=== PATIENT | male | born 1975 | race Caucasian/White ===

== ENCOUNTER 2024-01-21 10:22 | Inpatient (IN) ==
--- NOTE | 2024-01-21 11:06 | Emergency Department Note ---
History of Present Illness General Chief complaint: Throat Pain Stated complaint: THROAT SWELLING, DIFFICULTY SWALLOWING Time Seen by Provider: 01/21/24 10:42 History of Present Illness Maximum Pain Intensity: 4 This is a 48-year-old male that presents to the emergency department via private vehicle accompanied by 2 corrections officers from [facility] with complaints of "right-sided neck pain and swelling". The patient notes that January 08 noticed a lump/bump to the right side of the neck. He notes that he then became incarcerated here locally at the [facility] and notes progressive symptoms. Per review of the accompanying emergency flowsheet [id number] accompanying the patient he was started on oral Augmentin on 01/18. Patient has been compliant with this medication. Patient notes over the past 2.5 days he has not had any to eat secondary to severe pain when he swallows in the right side of the neck. The patient is able to breathe. He has associated nausea. He denies any fevers, chills or vomiting. No history of similar. No recent facial or dental injury. No known drug allergies. 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 Dyslipidemia Bipolar disorder Surgical History H/O vasectomy Family History Mother Non-Hodgkin lymphoma Father Brain cancer Social History Smoking Status: Former smoker Second Hand Exposure: No; Do You Dip or Chew Tobacco: No; Tobacco Cessation Education Requested by Patient: No Hx Alcohol Use: No Hx Substance Use: No Beliefs That Will Affect Care: None Current Living Situation: Other Other Information That Helps Us Care for You: No Feels Safe at Home: Yes Safety Concerns: Feels Safe At This Time Review of Systems A total of 10 systems reviewed and were otherwise negative Physical Exam Vital Signs Vital Signs - 24 hr 01/21/24 10:34 Temperature 36.3 C L Temperature Source Temporal Artery Scan Pulse Rate 67 Respiratory Rate 16 Respiratory Effort / Characteristics Non-Labored Respiratory Depth Normal Blood Pressure 114/77 Blood Pressure Mean 89 Pulse Oximetry 95 Oxygen Delivery Method Room Air Sepsis Recent Fever Within 48 Hours No Sepsis New/Unexplained Change in Mental Status No Sepsis Action Taken by Nursing No Action Required VITAL SIGNS - Vital signs and nursing notes were reviewed. Stable and afebrile. GENERAL -48-year-old male appearing his stated age who is in no acute distress. Communicates well with provider and answers questions appropriately. SKIN - Without rashes. No meningeal or petechial rash. There is edema and erythema noted to the right side of the neck and the right submandibular region. HEAD - NC/AT. EYES - PERRL with EOMI bilaterally. Sclera anicteric. EARS - No deformities of external structures noted on gross examination bilaterally. External auditory canals without discharge or otorrhea. Tympanic membranes pearly craft without retraction or bulging. No fluid or purulent material visualized behind the TM. Handle of malleus, umbo, cone of light, pars tensa/flaccid all easily visualized. NOSE - Midline and without cyanosis. No epistaxis or purulent drainage noted. Septum midline without deviation or septal hematoma noted. MOUTH/OROPHARYNX - Without perioral cyanosis. Buccal mucosa pink and moist and without leukoplakia. Tongue midline with equal elevation of palate bilaterally. No tonsillar hypertrophy, erythema, or exudates noted. Fair dentition noted. Much of the anterior dentition is present however most of the molars appear to be eroded to the gumline with dental caries noted. NECK - Neck with FROM. Supple to palpation. Right anterior cervical lymphadenopathy noted with palpable indurated and nonfluctuant right anterior submandibular region that is tender to palpation. No crepitus. No nuchal rigidity. LUNGS - Chest wall symmetric without accessory muscle use, intercostals retractions, or central cyanosis. Normal vesicular breath sounds CTA B/L. No wheezes, rales, or rhonchi appreciated. CARDIAC - RRR with S1/S2. No murmur, rubs, or gallops appreciated. EXTREMITIES - No clubbing or peripheral cyanosis. +5/5 strength noted in UE/LE bilaterally. NEUROLOGIC - Cranial nerves II through XII grossly intact PSYCH -alert, oriented and pleasant on exam Course Administered Medications Acetaminophen (Ofirmev) 1,000 mg in 100 mls @ 400 mls/hr IV Q8H [facility] Stop: 01/24/24 17:14 Last Infusion: 01/21/24 17:54 Dose: Infused Documented By: Admin: 01/21/24 17:33 Dose: 400 mls/hr Documented By: LOU Piperacillin Sod/Tazobactam Sod (Zosyn) 4.5 gm in 100 mls @ 25 mls/hr IV Q8H [facility] Stop: 01/31/24 18:59 Last Admin: 01/21/24 18:52 Dose: 25 mls/hr Documented By: LOU Lactated Ringer's (Lr) 1,000 mls @ 80 mls/hr IV .[id number] [facility] Stop: 01/22/24 18:00 Last Admin: 01/21/24 17:30 Dose: 80 mls/hr Documented By: LOU Discontinued Medications Vancomycin HCl 1,500 mg/ (Sodium Chloride) 530 mls @ 200 mls/hr IV NOW ONE Stop: 01/21/24 15:58 Last Infusion: 01/21/24 17:54 Dose: Infused Documented By: Admin: 01/21/24 15:38 Dose: 200 mls/hr Documented By: JANIYA Piperacillin Sod/Tazobactam Sod (Zosyn) 4.5 gm in 100 mls @ 200 mls/hr IV NOW ONE Stop: 01/21/24 13:50 Last Infusion: 01/21/24 17:25 Dose: Infused Documented By: Admin: 01/21/24 13:48 Dose: 200 mls/hr Documented By: CANDY Sodium Chloride (Nss) 1,000 mls @ 125 mls/hr IV .Q8H [facility] Stop: 02/20/24 13:29 Last Infusion: 01/21/24 17:41 Dose: Infused Documented By: Admin: 01/21/24 13:48 Dose: 125 mls/hr Documented By: CANDY Ioversol (Optiray 320 100ml) 94 ml IV ONCE ONE Stop: 01/21/24 12:16 Last Admin: 01/21/24 12:17 Dose: 94 ml Documented By: ARIANA Medical Decision Making Laboratory Data 01/21/24 10:54 01/21/24 10:54 Lab Results 01/21/24 Range/Units 10:54 WBC 8.80 (4.8-10.8) K/ul RBC 5.56 (4.70-6.10) M/uL Hgb 15.3 (14.0-18.0) g/dl Hct 45.2 (42.0-52.0) % MCV 81.3 (80.0-100.0) fL MCH 27.5 (25.0-34.0) pg MCHC 33.8 (32.0-36.0) g/dL RDW Std Deviation 38.5 (36.4-46.3) fL RDW Coeff of Loly 13.2 (11.5-14.5) % Plt Count 288 (130-400) K/uL MPV 9.6 (9.4-12.4) fL Immature Gran % (Auto) 0.3 % Neut % (Auto) 56.2 % Lymph % (Auto) 32.3 % Mckenzie % (Auto) 9.0 % Eos % (Auto) 1.7 % Baso % (Auto) 0.5 % Neut # (Auto) 4.95 (1.40-6.50) K/uL Lymph # (Auto) 2.84 (1.20-3.40) K/uL Mckenzie # (Auto) 0.79 H (0.11-0.59) K/uL Eos # (Auto) 0.15 (0.00-0.50) K/uL Baso # (Auto) 0.04 (0.00-0.20) K/uL Immature Gran # (Auto) 0.03 (0.01-0.20) K/uL Sodium 136 (136-145) mmol/L Potassium 4.2 (3.5-5.1) mmol/L Chloride 105 (98-107) mmol/L Carbon Dioxide 24 (21-32) mmol/L Anion Gap 7 (3-11) BUN 13 (6-23) mg/dl Creatinine 0.72 (0.6-1.4) mg/dl Est Cr Clr Drug Dosing 135.1 ml/min Est GFR ( Amer) 128.7 ml/min Est GFR (Non-Af Amer) 111.1 ml/min BUN/Creatinine Ratio 18.1 (10-20) Glucose 100 H (70-99(Fasting)) mg/dl Calcium 9.0 (8.6-10.3) mg/dl Total Bilirubin 0.6 (0.2-1.0) mg/dl AST 21 (13-39) U/L ALT 21 (7-52) U/L Alkaline Phosphatase 62 (34-104) U/L Total Protein 7.8 (6.0-8.3) gm/dl Albumin 4.2 (3.4-5.0) gm/dl Globulin 3.6 (2.5-4.0) gm/dl Albumin/Globulin Ratio 1.2 (0.9-2) Imaging Data Radiologist's Impression: Soft Tissue Neck CT 01/21/24 11:01 CT OF THE NECK WITH IV CONTRAST CLINICAL HISTORY: Right sided neck pain, edema COMPARISON STUDY: No previous studies for comparison. TECHNIQUE: Following IV administration of 94 mL of Optiray, helical axial images of the neck were obtained. Sagittal and coronal reconstructions were viewed. Automated exposure control was utilized for the study. A dose lowering technique was utilized adhering to the principles of ALARA. FINDINGS: Visualized portions of the intracranial contents are unremarkable. The parotid glands are normal. The left submandibular gland is normal. There are multiple large sialoliths within the right submandibular gland the proximal right submandibular gland duct. The largest is within the gland, extending into the proximal duct, measuring 2.3 x 1.3 cm. There is asymmetric enlargement right submandibular gland with moderate adjacent inflammation which extends into the submandibular and parapharyngeal spaces. There is moderate associated mass effect upon the hypopharynx. No fluid collections are present. There is no soft tissue gas. Multiple asymmetrically mildly enlarged right-sided cervical lymph nodes are present. Index right level 1 node on image 197 of 393 measures 1.4 x 1 cm. The epiglottis is normal. Visualized portions of lung apices demonstrate mild emphysema. Major vasculature of the neck is patent. IMPRESSION: 1. Multiple large sialoliths within the right submandibular gland and proximal submandibular duct, measuring up to 2.3 x 1.3 cm. Associated sialoadenitis of the right submandibular gland with moderate adjacent inflammation with mass effect upon the hypopharynx and floor of the mouth. 2. Multiple mildly enlarged right-sided cervical lymph nodes which are likely reactive. A follow-up neck CT 2 months to ensure resolution and exclude the much less likely possibility of an underlying neoplastic process is recommended. ACT 112: Positive. There are findings on this exam that require communication between the performing entity and the patient following Patient Test Result Information Act ([place] Act 112) guidelines. Electronically signed by: Lee Hill M.D. 01/21/2024 1:00 PM MDM Narrative Patient was seen and evaluated as above in room D09. Review was performed of triage nursing notes and vital signs. A thorough history and physical examination was performed. Patient presents to us today for assessment of progressive right-sided neck pain. On exam there is edema to the right anterior neck region. There is no drooling, stridor, trismus, wheezing or tripoding. Normal phonation. No signs of emergent airway compromise at this time. Options of care were discussed with the patient. IV access was established. Labs were drawn. No leukocytosis or concerning anemia. No emergent metabolic disturbance. CT soft tissue neck was obtained. Results as above. Multiple large style of this within the right submandibular gland and proximal submandibular duct, measuring up to 2.3 x 1.3 cm. Associated sialoadenitis of the right submandibular gland with moderate adjacent inflammation with mass effect upon the hypopharynx and floor of the mouth. Multiple right-sided enlarged cervical lymph nodes noted. Follow-up neck CT in 2 months recommended. I discussed this with the on-call oral maxillofacial surgeon, Dr. Eisenberg. I spoke to him and we will proceed with inpatient management, IV antibiotics. He will see the patient during the admission here. IV Zosyn as well as IV vancomycin ordered for broad coverage. Case discussed with the hospitalist service. Please refer to further documentation regarding his stay. GCS: 15 In the evaluation and treatment of this patient the following differential diagnoses were entertained: Abscess, cellulitis, stone, Saurabh's angina, among others. Impression & Plan Acute sialoadenitis, Sialoliths, Neck pain on right side Discharge Plan Visit Data Chief Complaint: Throat Pain Stated Complaint: THROAT SWELLING, DIFFICULTY SWALLOWING ED Provider: Edmund Leal ED Midlevel Provider: Boom Moon Discharge Problem: Acute sialoadenitis, Sialoliths, Neck pain on right side Patient Disposition: Admitted As Inpatient Condition: Good Discharge Instructions Interventions: ED Discharge Assessment Last Done: 01/21/24 16:12
[2024-01-21 11:18] LABS: Basophils # (auto) 0.04 K/uL (0.00-0.20); Basophils % (auto) 0.5 %; Eosinophils # (auto) 0.15 K/uL (0.00-0.50); Eosinophils % (auto) 1.7 %; Hematocrit (blood only) 45.2 % (42.0-52.0); Hemoglobin 15.3 g/dl (14.0-18.0); Immature Granulocytes # (auto) 0.03 K/uL (0.01-0.20); Immature Granulocytes % (auto) 0.3 %; Lymphocytes # (auto) 2.84 K/uL (1.20-3.40); Lymphocytes % (auto) 32.3 %; Mean Corpuscular Hemoglobin 27.5 pg (25.0-34.0); Mean Corpuscular Hgb Conc 33.8 g/dL (32.0-36.0); Mean Corpuscular Volume 81.3 fL (80.0-100.0); Mean Platelet Volume 9.6 fL (9.4-12.4); Monocytes # (auto) 0.79 K/uL (0.11-0.59); Neutrophils # (auto) 4.95 K/uL (1.40-6.50); Neutrophils % (auto) 56.2 %; Platelet Count 288 K/uL (130-400); RDW Coefficient of Variation 13.2 % (11.5-14.5); RDW Standard Deviation 38.5 fL (36.4-46.3); Red Blood Count 5.56 M/uL (4.70-6.10)
[2024-01-21 11:39] LABS: Albumin Globulin Ratio 1.2 (0.9-2); Albumin Level 4.2 gm/dl (3.4-5.0); BUN Creatinine Ratio 18.1 (10-20); Bilirubin,Total 0.6 mg/dl (0.2-1.0); Creatinine Clr Calc Pharmacy 135.1 ml/min; Est GFR (African American) 128.7 ml/min; Est GFR (Non-African American) 111.1 ml/min; Globulin 3.6 gm/dl (2.5-4.0); Potassium 4.2 mmol/L (3.5-5.1); Total Protein 7.8 gm/dl (6.0-8.3)
[2024-01-21] MEDS: OPTIRAY 320 100ml IV ONE (12:17)
--- NOTE | 2024-01-21 13:01 | CT Scan Report ---
CT OF THE NECK WITH IV CONTRAST CLINICAL HISTORY: Right sided neck pain, edema COMPARISON STUDY: No previous studies for comparison. TECHNIQUE: Following IV administration of 94 mL of Optiray, helical axial images of the neck were ob tained. Sagittal and coronal reconstructions were viewed. Automated exposure control was utilized f or the study. A dose lowering technique was utilized adhering to the principles of ALARA. FINDINGS: Visualized portions of the intracranial contents are unremarkable. The parotid glands are normal. The left submandibular gland is normal. There are multiple large sialoliths within the right submandibular gland the proximal right submandibular gland duct. The largest is within the gland, ext ending into the proximal duct, measuring 2.3 x 1.3 cm. There is asymmetric enlargement right submandi bular gland with moderate adjacent inflammation which extends into the submandibular and parapharynge al spaces. There is moderate associated mass effect upon the hypopharynx. No fluid collections are pr esent. There is no soft tissue gas. Multiple asymmetrically mildly enlarged right-sided cervical lymp h nodes are present. Index right level 1 node on image 197 of 393 measures 1.4 x 1 cm. The epiglottis is normal. Visualized portions of lung apices demonstrate mild emphysema. Major vasculature of the n stephon is patent. IMPRESSION: 1. Multiple large sialoliths within the right submandibular gland and proximal submandibular duct, me asuring up to 2.3 x 1.3 cm. Associated sialoadenitis of the right submandibular gland with moderate a djacent inflammation with mass effect upon the hypopharynx and floor of the mouth. 2. Multiple mildly enlarged right-sided cervical lymph nodes which are likely reactive. A follow-up n stephon CT 2 months to ensure resolution and exclude the much less likely possibility of an underlying ne oplastic process is recommended. ACT 112: Positive. There are findings on this exam that require communication between the performing entity and the patient following Patient Test Result Information Act ([place] Act 112) guidelines. Electronically signed by: Lee Hill M.D. 01/21/2024 1:00 PM
[2024-01-21] MEDS ORDERED: AMPICILLIN/SULBACTAM SOD 3,000 MG/100 ML BAG IV STA (13:20)
[2024-01-21] MEDS ORDERED: VANCOMYCIN CONSULT ACTIVE PRN (13:20)
--- NOTE | 2024-01-21 13:31 | History & Physical Report ---
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 Notes it has gotten progressively worse and is to the point where it hurts to swallow. He was star anup on oral Augmentin on 01/18 without much to any improvement. Sialoliths & Acute Sialoadenitis Lab work unremarkable, no leukocytosis. Airway patent. Soft tissue neck CT w/ the following findings: * Multiple large sialoliths w/in the R submandibular gland and proximal submandibular duct, measuring up to 2.3 x 1.3 cm. * Associated sialoadenitis of the R submandibular gland w/ moderate adjacent inflammation w/ mass effect upon the hypopharynx and floor of the mouth. * Multiple mildly enlarged R-sided cervical lymph nodes - likely reactive. A follow-up neck CT 2 months to ensure resolution and exclude the much less likely possibility of an underlying neoplastic process is recommended. OMFS consulted - Dr. Eisenberg will be in to see patient this evening. Appreciate his recommendations/input. IV Vancomycin + Zosyn in ED. 1L NSS in ED. Will continue IV Zosyn. Continue IVF w/ LR's x 2 bags. Full liquid diet. Pain regimen. Biofire pending. MRSA swab pending. Blood cx pending. Speech therapy eval pending. OF NOTE: Patient's mother w/ history of non-Hodgkin's lymphoma - was diagnosed in her 30s. Will need follow-up neck CT as outpatient to ensure resolution of mildly enlarged R-sided cervical chain lymph nodes. DVT Prophylaxis: TEDs/SCDs for now pending OMFS evaluation. Code Status: FULL CODE PCP: [facility] Disposition: Admit to Med/Surg + Telemetry Patient seen in collaboration with Dr. Collins. Please see addendum. I spent a total of 45 minutes coordinating, documenting, and providing care for this patient excluding time spent in the performance of separately billed services. This included personally reviewing all current laboratories and imaging studies, medical reconciliation, outpatient chart review and discussion with specialists. This chart was completed in part utilizing Speech Voice Recognition Software. Grammatical errors, random word insertions, pronoun errors, and incomplete sentences are an occasional consequence of this system due to software limitations, ambient noise, and hardware issues. Any formal questions or concerns about the content, text, or information contained within the body of this dictation should be directly addressed to the provider for clarification. 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 History obtained from patient, documentation provided by [facility] and associated chart review. Patient with R-sided facial and neck swelling since December 29. Notes it has gotten progressively worse and is to the point where it hurts to swallow. He has been able to tolerate fluids fine, but reports significant difficulty with swallowing solid foods. Denies any SOB or trouble breathing. Has some associated nausea, but no episodes of vomiting. He was started on oral Augmentin on 01/18 at [facility] and has been compliant with this medication. He does not take any other prescribed medications. No fevers, chills or body aches. He has not been eating well over the past 2 days 2/2 pain with swallowing. Reports his mother was diagnosed with non-Hodgkin's lymphoma in her 30s. Father from brain cancer, unsure of what type. Allergies Allergy/AdvReac Type Severity Reaction Status Date / Time No Known Allergies Allergy Unverified 01/21/24 14:04 Home Medications Medication Instructions Recorded Confirmed Type No Known Home Medications 01/21/24 01/21/24 History Past Med/Surg History Problem List (Updated 01/21/24 @ 14:25 by Keren García PA-C) Sialoliths Acute sialoadenitis Medical History 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 Dyslipidemia Bipolar disorder Surgical History H/O vasectomy Family History Mother Non-Hodgkin lymphoma Father Brain cancer Social History Smoking Status: Never smoker Feels Safe at Home: Yes Review of Systems Review of Systems: At least ten systems reviewed and negative, except as noted in the HPI. Physical Exam Physical Exam: Please refer to Dr. Collins's addendum for physical examination findings. Results & Data Results & Data Vital Signs (Past 12 Hours) Vital Signs Temp Pulse Resp BP Pulse Ox O2 Del Method 01/21/24 10:34 36.3 C L 67 16 114/77 95 Room Air Laboratory Results Short CBC 01/21/24 Range/Units 10:54 WBC 8.80 (4.8-10.8) K/ul Hgb 15.3 (14.0-18.0) g/dl Hct 45.2 (42.0-52.0) % Plt Count 288 (130-400) K/uL BMP 01/21/24 10:54 Sodium 136 Potassium 4.2 Chloride 105 Carbon Dioxide 24 BUN 13 Creatinine 0.72 Glucose 100 H Calcium 9.0 Liver Function 01/21/24 Range/Units 10:54 Total Bilirubin 0.6 (0.2-1.0) mg/dl AST 21 (13-39) U/L ALT 21 (7-52) U/L Alkaline Phosphatase 62 (34-104) U/L Albumin 4.2 (3.4-5.0) gm/dl Diagnostic Findings Soft Tissue Neck CT 01/21/24 11:01 CT OF THE NECK WITH IV CONTRAST CLINICAL HISTORY: Right sided neck pain, edema COMPARISON STUDY: No previous studies for comparison. TECHNIQUE: Following IV administration of 94 mL of Optiray, helical axial images of the neck were obtained. Sagittal and coronal reconstructions were viewed. Automated exposure control was utilized for the study. A dose lowering technique was utilized adhering to the principles of ALARA. FINDINGS: Visualized portions of the intracranial contents are unremarkable. The parotid glands are normal. The left submandibular gland is normal. There are multiple large sialoliths within the right submandibular gland the proximal right submandibular gland duct. The largest is within the gland, extending into the proximal duct, measuring 2.3 x 1.3 cm. There is asymmetric enlargement right submandibular gland with moderate adjacent inflammation which extends into the submandibular and parapharyngeal spaces. There is moderate associated mass effect upon the hypopharynx. No fluid collections are present. There is no soft tissue gas. Multiple asymmetrically mildly enlarged right-sided cervical lymph nodes are present. Index right level 1 node on image 197 of 393 measures 1.4 x 1 cm. The epiglottis is normal. Visualized portions of lung apices demonstrate mild emphysema. Major vasculature of the neck is patent. IMPRESSION: 1. Multiple large sialoliths within the right submandibular gland and proximal submandibular duct, measuring up to 2.3 x 1.3 cm. Associated sialoadenitis of the right submandibular gland with moderate adjacent inflammation with mass effect upon the hypopharynx and floor of the mouth. 2. Multiple mildly enlarged right-sided cervical lymph nodes which are likely reactive. A follow-up neck CT 2 months to ensure resolution and exclude the much less likely possibility of an underlying neoplastic process is recommended. ACT 112: Positive. There are findings on this exam that require communication between the performing entity and the patient following Patient Test Result Information Act ([place] Act 112) guidelines. Electronically signed by: Lee Hill M.D. 01/21/2024 1:00 PM Medications Administered Discontinued Medications Ioversol (Optiray 320 100ml) 94 ml IV ONCE ONE Stop: 01/21/24 12:16 Last Admin: 01/21/24 12:17 Dose: 94 ml Documented By: JAR Code Status & VTE Plan Code Status FULL CODE Supervising Physician Co-Signing Physician Notes Patient is a 48-year-old male with mood disorder and no other significant past medical history presents with history of right neck swelling associated with pain, difficulty swallowing especially solids which has been gradually worsening since about 1 week duration. Patient was started on Augmentin 2 days ago which did not resolve her symptoms. He denies any fever, chills, chest pain, dyspnea, abdominal pain, diarrhea. He denies having similar swelling in the past. He reports nausea as well. Please review HPI for complete details of presentation. Blood work within normal limits. CT neck showed findings suggestive of siaload enitis of the right submandibular gland with moderate inflammation with mass effect upon the hypopharynx and floor of the mouth. Also showed enlarged right- sided cervical lymph nodes. Physical Exam: Vitals signs as noted above General Appearance:Moderately built and nourished, no apparent distress Head: normocephalic, Atraumatic Eyes: normal inspection, EOMI Neck: supple, Trachea midline, + right submandibular region swelling, tenderness Respiratory/Chest: Normal breath sounds, CTA, No accessory muscle use Cardiovascular: S1, S2, No murmur Abdomen/GI:Soft, Non tender, Bowel sounds present Extremities/Musculoskeletal:normal inspection, no edema, +Finger Amputation Neurologic/Psych:AAOX3, grossly no focal neurological deficits Skin: normal color, warm Acute sialadenitis Sialolithiasis Right cervical lymphadenopathy likely reactive secondary to above Dysphagia secondary to above CT neck as above Blood cultures Check viral panel IV fluids, IV Zosyn Pain control with anti-inflammatories Oral maxillary surgery consulted Liquid diet for now Likely will need repeat CT neck as outpatient to ensure resolution Consider speech therapy eval if needed May need lithotripsy, biopsy of cervical lymph nodes if no resolution with conservative management I personally interviewed and examined at bedside. Patient's care is coordinated with Keren García PA-C. I have reviewed the advanced practitioner's documentation, and I agree with plan of care. Please refer to the documentation above for details of patient's presentation and for discussion of other issues. I spent a total of26 minutes coordinating, documenting, and providing care for this patient excluding time spent in the performance of separately billed services.
[2024-01-21] MEDS: SODIUM CHLORIDE 0.9% 1,000 ML IV SCH (13:48)
[2024-01-21] MEDS: PIPERACILLIN/TAZOBACTAM 4.5 GM/100 ML BAG IV ONE (13:48)
[2024-01-21] MEDS: VANCOMYCIN HCL 1,500 MG in SODIUM CHLORIDE 0.9% 500 ML IV ONE (15:38)
[2024-01-21 16:49] LABS: Adenovirus PCR Not Detected (NotDetected); Bordetella parapertussis PCR Not Detected (NotDetected); Bordetella pertussis PCR Not Detected (NotDetected); Chlamydia pneumoniae PCR Not Detected (NotDetected); Coronavirus 229E PCR Not Detected (NotDetected); Coronavirus CoV-2 (COVID19)PCR Not Detected (NotDetected); Coronavirus HKU1 PCR Not Detected (NotDetected); Coronavirus NL63 PCR Not Detected (NotDetected); Coronavirus OC43PCR Not Detected (NotDetected); Human Metapneumovirus PCR Not Detected (NotDetected); Influenza A PCR Not Detected (NotDetected); Influenza B PCR Not Detected (NotDetected); Mycoplasma pneumoniae PCR Not Detected (NotDetected); Parainfluenza Virus 1 PCR Not Detected (NotDetected); Parainfluenza Virus 2 PCR Not Detected (NotDetected); Parainfluenza Virus 3 PCR Not Detected (NotDetected); Parainfluenza Virus 4 PCR Not Detected (NotDetected); Respiratory Syncytial VirusPCR Not Detected (NotDetected); Rhinovirus/Enterovirus PCR Not Detected (NotDetected)
[2024-01-21] MEDS ORDERED: ONDANSETRON INJ 2 MG/ML 2 ML VIAL IV PRN (17:01)
[2024-01-21] MEDS: LACTATED RINGER'S 1,000 ML IV SCH (17:30)
[2024-01-21] MEDS: ACETAMINOPHEN 1,000 MG/100 ML VIAL IV SCH (17:33)
[2024-01-21] MEDS: PIPERACILLIN/TAZOBACTAM 4.5 GM/100 ML BAG IV SCH (18:52)
[2024-01-21] MEDS: KETOROLAC TROMETHAMINE 15 MG/ML VIAL IV PRN (23:00)
[2024-01-22 07:32] LABS: Hematocrit (blood only) 40.2 % (42.0-52.0); Hemoglobin 13.7 g/dl (14.0-18.0); Mean Corpuscular Hemoglobin 27.6 pg (25.0-34.0); Mean Corpuscular Hgb Conc 34.1 g/dL (32.0-36.0); Mean Corpuscular Volume 80.9 fL (80.0-100.0); Platelet Count 245 K/uL (130-400); RDW Coefficient of Variation 13.2 % (11.5-14.5); RDW Standard Deviation 38.3 fL (36.4-46.3); Red Blood Count 4.97 M/uL (4.70-6.10); White Blood Count 7.11 K/ul (4.8-10.8)
[2024-01-22 07:52] LABS: BUN Creatinine Ratio 16.5 (10-20); Calcium 8.7 mg/dl (8.6-10.3); Creatinine Clr Calc Pharmacy 145.1 ml/min; Est GFR (African American) 123.9 ml/min; Est GFR (Non-African American) 106.9 ml/min; Magnesium 1.8 mg/dl (1.7-2.4); Phosphorus 3.9 mg/dl (2.5-4.9); Potassium 3.8 mmol/L (3.5-5.1)
--- NOTE | 2024-01-22 17:26 | Hospitalist Progress Note ---
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 Notes it has gotten progressively worse and is to the point where it hurts to swallow. He was s tarted on oral Augmentin on 01/18 without much to any improvement. Spoke with OMFS who will evaluate and discuss possible surgical intervention. #Acute Sialoadenitis soft tissue neck CT w/ the following findings: * Multiple large sialoliths w/in the R submandibular gland and proximal submandibular duct, measuring up to 2.3 x 1.3 cm. * Associated sialoadenitis of the R submandibular gland w/ moderate adjacent inflammation w/ mass effect upon the hypopharynx and floor of the mouth. * Multiple mildly enlarged R-sided cervical lymph nodes - likely reactive. A follow-up neck CT 2 months to ensure resolution and exclude the much less likely possibility of an underlying neoplastic process is recommended. OMFS consulted - -Continue IV zosyn -Likely NPO Thursday for surgical intervention on Thursday Blood culture NGTD Follow up imaging as op for resolution of LAD--likely reactive 2/2 infection DVT Prophylaxis: TEDs/SCDs for now pending OMFS evaluation. Code Status: FULL CODE PCP: [facility] Disposition: Admit to Med/Surg + Telemetry Admission and Anticipated Discharge Date Admission Date: January 21, 2024 Subjective NAEO Reports mild improvement in facial pain Denies fevers or other acute concerns Physical Exam Constitutional: WD/WN, vitals as above Neck: swollen neck, tender right side Respiratory: normal respiratory effort, lungs clear to auscultation Cardiovascular: RRR, no murmur, no edema Gastrointestinal (Abdomen): normal bowel sounds, soft, nontender, no hepatosplenomegaly Results & Data Results & Data Vital Signs (Past 12 Hours) Vital Signs Temp Pulse Pulse Resp BP Pulse Ox O2 Del Method 01/22/24 15:30 59 L 01/22/24 15:00 36.4 C L 63 18 113/75 93 Room Air 01/22/24 11:46 36.6 C 58 L 18 112/74 95 Room Air 01/22/24 07:25 36.3 C L 66 18 104/68 95 Room Air 01/22/24 07:21 65 Laboratory Results Short CBC 01/22/24 Range/Units 06:56 WBC 7.11 (4.8-10.8) K/ul Hgb 13.7 L (14.0-18.0) g/dl Hct 40.2 L (42.0-52.0) % Plt Count 245 (130-400) K/uL BMP 01/22/24 06:56 Sodium 138 Potassium 3.8 Chloride 105 Carbon Dioxide 26 BUN 13 Creatinine 0.79 Glucose 98 Calcium 8.7 Medications Administered Home Medications Medication Instructions Recorded Confirmed Last Taken No Known Home Medications 01/21/24 01/21/24 Unknown Active Medications Generic Name Dose Route Start Last Admin Trade Name Deshaunq PRN Reason Stop Dose Admin Acetaminophen 1,000 mg in 100 mls @ 400 mls/hr 01/21/24 17:15 01/22/24 16:05 Ofirmev IV 01/24/24 17:14 Not Given Q8H ЕЛЕНА Piperacillin Sod/Tazobactam Sod 4.5 gm in 100 mls @ 25 mls/hr 01/21/24 19:00 01/22/24 13:43 Zosyn IV 01/31/24 18:59 Infused Q8H ЕЛЕНА Infusion Lactated Ringer's 1,000 mls @ 80 mls/hr 01/21/24 17:01 01/22/24 06:31 Lr IV 01/22/24 18:00 80 mls/hr .[id number] ЕЛЕНА Administration
[2024-01-22] MEDS: KETOROLAC TROMETHAMINE 15 MG/ML VIAL IV PRN (17:29)
[2024-01-23 08:05] LABS: Hemoglobin 14.3 g/dl (14.0-18.0); Mean Corpuscular Hemoglobin 28.4 pg (25.0-34.0); Mean Corpuscular Hgb Conc 34.9 g/dL (32.0-36.0); Mean Corpuscular Volume 81.3 fL (80.0-100.0); Mean Platelet Volume 9.5 fL (9.4-12.4); Platelet Count 258 K/uL (130-400); RDW Coefficient of Variation 13.2 % (11.5-14.5); RDW Standard Deviation 38.6 fL (36.4-46.3); Red Blood Count 5.04 M/uL (4.70-6.10); White Blood Count 8.07 K/ul (4.8-10.8)
[2024-01-23 08:22] LABS: Calcium 8.9 mg/dl (8.6-10.3); Creatinine Clr Calc Pharmacy 134.4 ml/min; Est GFR (African American) 119.7 ml/min; Est GFR (Non-African American) 103.3 ml/min; Magnesium 1.7 mg/dl (1.7-2.4); Phosphorus 3.9 mg/dl (2.5-4.9); Potassium 3.9 mmol/L (3.5-5.1)
[2024-01-23] MEDS: LACTATED RINGER'S 1,000 ML IV SCH (08:23)
[2024-01-23] MEDS: LACTATED RINGER'S 500 ML IV ONE (08:23)
[2024-01-23] MEDS: HYDROmorphone INJ 0.5 MG/0.5 ML SYR IV PRN (08:32)
--- NOTE | 2024-01-23 09:20 | Hospitalist Progress Note ---
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 Notes it has gotten progressively worse and is to the point where it hurts to swallow. He was s tarted on oral Augmentin on 01/18 without much to any improvement. Spoke with OMFS who will evaluate and discuss possible surgical intervention. #Hypotensive, aymptomatic BP lower end of normal, poor po intake Add IVF #Acute Sialoadenitis soft tissue neck CT w/ the following findings: * Multiple large sialoliths w/in the R submandibular gland and proximal submandibular duct, measuring up to 2.3 x 1.3 cm. * Associated sialoadenitis of the R submandibular gland w/ moderate adjacent inflammation w/ mass effect upon the hypopharynx and floor of the mouth. * Multiple mildly enlarged R-sided cervical lymph nodes - likely reactive. A follow-up neck CT 2 months to ensure resolution and exclude the much less likely possibility of an underlying neoplastic process is recommended. OMFS consulted - -Continue IV zosyn -NPO for surgical intervention Blood culture NGTD Follow up imaging as op for resolution of LAD--likely reactive 2/2 infection Adjusted pain regimen for better coverage of symptoms cbc in am DVT Prophylaxis: TEDs/SCDs for now pending OMFS evaluation. Code Status: FULL CODE PCP: [facility] Disposition: Admit to Med/Surg + Telemetry Admission and Anticipated Discharge Date Admission Date: January 21, 2024 Subjective Reports pain returns aggressively after medication wears off, feels like right neck is sharp/stabbing Denies fevers or other new concerns Physical Exam Constitutional: WD/WN, vitals as above Neck: right sided neck firmness and tenderness Cardiovascular: RRR, no murmur, no edema Gastrointestinal (Abdomen): normal bowel sounds, soft, nontender, no hepatosplenomegaly Results & Data Results & Data Vital Signs (Past 12 Hours) Vital Signs Temp Pulse Pulse Resp BP Pulse Ox O2 Del Method 01/23/24 07:28 36.5 C 53 L 18 93/64 L 91 Room Air 01/23/24 07:27 64 01/23/24 04:21 36.6 C 69 20 91/54 L 97 Room Air 01/23/24 00:20 36.7 C 64 20 101/66 97 Room Air 01/22/24 23:25 64 Laboratory Results Short CBC 01/23/24 Range/Units 06:54 WBC 8.07 (4.8-10.8) K/ul Hgb 14.3 (14.0-18.0) g/dl Hct 41.0 L (42.0-52.0) % Plt Count 258 (130-400) K/uL BMP 01/23/24 06:54 Sodium 139 Potassium 3.9 Chloride 105 Carbon Dioxide 29 BUN 12 Creatinine 0.86 Glucose 98 Calcium 8.9 Medications Administered Home Medications Medication Instructions Recorded Confirmed Last Taken No Known Home Medications 01/21/24 01/21/24 Unknown Active Medications Generic Name Dose Route Start Last Admin Trade Name Freq PRN Reason Stop Dose Admin Hydromorphone HCl 0.5 mg 01/23/24 08:16 01/23/24 08:32 Hydromorphone Inj 0.5 Mg/0.5 Ml Syr IV 02/06/24 08:15 0.5 mg Q4H PRN Administration Severe Pain (Scale 7, 8, 9,10) Acetaminophen 1,000 mg in 100 mls @ 400 mls/hr 01/21/24 17:15 01/23/24 08:14 Ofirmev IV 01/24/24 17:14 Not Given Q8H ЕЛЕНА Piperacillin Sod/Tazobactam Sod 4.5 gm in 100 mls @ 25 mls/hr 01/21/24 19:00 01/23/24 07:05 Zosyn IV 01/31/24 18:59 Infused Q8H ЕЛЕНА Infusion Lactated Ringer's 1,000 mls @ 125 mls/hr 01/23/24 08:00 01/23/24 08:23 Lr IV 02/22/24 07:59 125 mls/hr .Q8H ЕЛЕНА Administration Ketorolac Tromethamine 30 mg 01/22/24 17:20 01/23/24 07:05 Ketorolac Tromethamine 15 Mg/Ml Vial IV 01/25/24 17:19 30 mg Q6H PRN Administration Mod-Sev Pain (Scale 4-10)
--- NOTE | 2024-01-23 10:29 | Oral/Maxillofacial Consult ---
Date of Consultation January 21, 2024 Assessment & Plan (1) Neck pain on right side: (2) Sialoliths: (3) Acute sialoadenitis: (4) Submandibular duct obstruction: (5) Mouth swelling: (6) Retained dental root: History of Present Illness Attending Physician: Kell Montalvo MD History of Present Illness Patient is a 48-year-old male with mood disorder and no other significant past medical history presents with history of right neck swelling associated with pain, difficulty swallowing especially solids which has been gradually worsening since about 1 week duration. Patient was started on Augmentin 2 days ago which did not resolve her symptoms. He denies any fever, chills, chest pain, dyspnea, abdominal pain, diarrhea. He denies having similar swelling in the past. He reports nausea as well. Please review HPI for complete details of presentation. Blood work within normal limits. I evaluated Lyle on January 20 in his hospital room. There is a very firm mass which corresponds with the CT finding of a large calcified stone or gland. He has diffuse swelling and tenderness in the right submandibular area. I questioned him regarding the mass and he feels it has been like that for years. The most impressive part of the exam is the swelling in the right posterior floor of the mouth and scant cloudy drainage from the subglandular gland duct. The lower right teeth are grossly infected and fracture and may also be a contributing factor to the current infection. As of January 20 there is nothing to drain and therefor an I&D is not yet indicated. The plan is for IV antibiotics and follow up. January 22, 2024 At todays exam I now feel more fluctuance in the right floor of the mouth as the infection is starting to localize. Upon palpation some pus like discharge can be expressed from the duct and around the posterior lower fractured roots. I feel that another 24 hours of IV antibiotics will allow for more localization so an I&D can be set for THURSDAY AM. My treatment plan will be to place a probe into the right submandibular duct and do a wide opening of the duct and if possible remove any of the stones that are in the posterior duct and preform a posterior ducto-plasty for drainage. I will also remove and curette the fractured lower posterior roots and establish drainage of the submandibular infection via the intraoral approach. I reviewed this with Lyle and he is in agreement. He understands that ultimately he will need the right submandibular gland removed once the acute infection is resolved. I will see Lyle on January 22 in the afternoon and finalize arrangement for the I&D with possible stone removal with extractions. Oral Maxillofacial Surgery Exam Present Complaint: I have pain/swelling/drainage from my infected wisdom teeth. Symptoms have been ongoing for a while. Oral Exam: Finding--P-cor associated with the impacted teeth, tender gingival tissue with deep pocket formation.Teeth are in an abnormal position and removal is clinical indicated. Imaging: CT neck showed findings suggestive of sialoadenitis of the right submandibular gland with moderate inflammation with mass effect upon the hypopharynx and floor of the mouth. Also showed enlarged right-sided cervical lymph nodes. CT OF THE NECK WITH IV CONTRAST CLINICAL HISTORY: Right sided neck pain, edema FINDINGS: Visualized portions of the intracranial contents are unremarkable. The parotid glands are normal. The left submandibular gland is normal. There are multiple large sialoliths within the right submandibular gland the proximal right submandibular gland duct. The largest is within the gland, extending into the proximal duct, measuring 2.3 x 1.3 cm. There is asymmetric enlargement right submandibular gland with moderate adjacent inflammation which extends into the submandibular and parapharyngeal spaces. There is moderate associated mass effect upon the hypopharynx. No fluid collections are present. There is no soft tissue gas. Multiple asymmetrically mildly enlarged right-sided cervical lymph nodes are present. Index right level 1 node on image 197 of 393 measures 1.4 x 1 cm. The epiglottis is normal. Visualized portions of lung apices demonstrate mild emphysema. Major vasculature of the neck is patent. IMPRESSION: 1. Multiple large sialoliths within the right submandibular gland and proximal submandibular duct, measuring up to 2.3 x 1.3 cm. Associated sialoadenitis of the right submandibular gland with moderate adjacent inflammation with mass effect upon the hypopharynx and floor of the mouth. 2. Multiple mildly enlarged right-sided cervical lymph nodes which are likely reactive. A follow-up neck CT 2 months to ensure resolution and exclude the much less likely possibility of an underlying neoplastic process is recommended. 3. Multiply fractured and abscessed teeth especially the lower right and left molars with associated radiolucencies. Soft tissue: The right floor of the mouth is swollen. The tongue, hard/soft palate, posterior pharyngeal area all with in normal limits, Noted the large stone w/in the right submandibular gland. Oral Care: Overall oral care is poor Head/Neck exam: Mass right submandibular area with diffuse swelling, minimal pain, Neck is supple, FROM, Able to extend and flex neck w/o difficulty, no masses, no abnormalities, no airway issues, Treatment Plan: Continue IV antibiotics for the next 48 hours then plan I&D Set up with general anesthesia in hospital due to complexity of the procedure I reviewed the treatment plan and consent with the patient. Understanding was expressed. Time was given for questions regarding the surgery, risks and post op care. Discussed alternative to treatment--procedure as planned, Do not do surgery Risks discussed: Bleeding,Pain,swelling,infection, dry socket, delayed healing, nerve injury to face,lips,tongue,chin area which could be permanent (rare). Need for future removal of the right submandibular gland, Damage to nerves of the face, tongue continued infection, scaring, TMJ, jaw stiffness, change in bite (rare), ear pain (referred). Need to leave a small root fragment in place to avoid injury to nerve or sinus. Relationship of wisdom teeth to nerve/sinus and risk of jaw fracture. 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 Dyslipidemia Bipolar disorder Surgical History H/O vasectomy Family History Mother Non-Hodgkin lymphoma Father Brain cancer Social History Smoking Status: Former smoker Second Hand Exposure: No; Do You Dip or Chew Tobacco: No; Tobacco Cessation Education Requested by Patient: No Hx Alcohol Use: No Hx Substance Use: No Beliefs That Will Affect Care: None Current Living Situation: Other Other Information That Helps Us Care for You: No Feels Safe at Home: Yes Safety Concerns: Feels Safe At This Time Results & Data Vital Signs (Past 12 Hours) Vital Signs Temp Pulse Pulse Resp BP Pulse Ox O2 Del Method 01/23/24 07:28 36.5 C 53 L 18 93/64 L 91 Room Air 01/23/24 07:27 64 01/23/24 04:21 36.6 C 69 20 91/54 L 97 Room Air 01/23/24 00:20 36.7 C 64 20 101/66 97 Room Air 01/22/24 23:25 64 PG Care Time/CCT Total # of Minutes Spent Total Time Spent with Patient: Total time spent is greater than 50% in coordination of care (as documented) at patient's floor/unit and/or counseling patient: Coding Level of Care Code 10334 IN/OBS CONSULT LVL 3,45M Diagnoses Neck pain on right side M54.2 Sialoliths K11.5 Acute sialoadenitis K11.21 Submandibular duct obstruction K11.8 Mouth swelling R22.0 Retained dental root K08.3
--- NOTE | 2024-01-23 16:35 | Oral/Maxillofacial Progress Nt ---
Date of Service January 23, 2024 Assessment & Plan Admission and Anticipated Discharge Date Admission Date: January 21, 2024 Erickson Alvarenga will be ready for the I&D , intraoral stone removal and extraction or infected teeth 29,, tomorrow AM in the OR. There is not much swelling in the submandibular gland as now all the swelling is located intro`rally in the posterior mandible where the large stone is located. Given how posterior it is located intraoral removal may no be possible. If that is the case I will at least do a posterior ductal plasty to drain the site, extraction of the abscessed teeth and roots lower right jaw. It is possible that the infection could be more dental related given the quality of the teeth. The stones are so large that I suspect the duct is non functioning. I will keep Glynn NPO tonight as surgery is set for Jan 23 in the OR in the AM I reviewed the Tx plan consent signed--Glynn understands that he may need the right gland removed if I can not remove the stone from the mouth or if his symptoms continue. If this infection is from the infected teeth the gland may not need removal unless symptoms continue. He also understand that in the face of the acute infection gland removal from the extraoral approach is not indicated and carries high risks of complications. Given that I need full access to the floor of the mouth I will request a nasal intubation. Results & Data Vital Signs (Past 12 Hours) Vital Signs Temp Pulse Pulse Resp BP Pulse Ox O2 Del Method 01/23/24 15:10 36.5 C 66 18 101/63 96 Room Air 01/23/24 13:34 71 01/23/24 11:24 36.6 C 81 16 99/66 L 96 Room Air 01/23/24 07:28 36.5 C 53 L 18 93/64 L 91 Room Air 01/23/24 07:27 64 PG Care Time/CCT Total # of Minutes Spent Total Time Spent with Patient: Total time spent is greater than 50% in coordination of care (as documented) at patient's floor/unit and/or counseling patient: Coding Level of Care Code None
[2024-01-23] MEDS: diphenhydrAMINE 50 MG/ML VIAL IV STA (19:25)
[2024-01-23] MEDS: SODIUM CHLORIDE 0.9% 1,000 ML IV SCH (21:31)
[2024-01-24] MEDS: CHLORHEXIDINE GLUCONATE 0.12% 480 ML MT PRN (01:36)
[2024-01-24 07:29] LABS: Hematocrit (blood only) 40.8 % (42.0-52.0); Hemoglobin 13.6 g/dl (14.0-18.0); Mean Corpuscular Hemoglobin 27.3 pg (25.0-34.0); Mean Corpuscular Hgb Conc 33.3 g/dL (32.0-36.0); Mean Corpuscular Volume 81.9 fL (80.0-100.0); Mean Platelet Volume 8.9 fL (9.4-12.4); Platelet Count 258 K/uL (130-400); RDW Coefficient of Variation 12.9 % (11.5-14.5); RDW Standard Deviation 38.5 fL (36.4-46.3); Red Blood Count 4.98 M/uL (4.70-6.10); White Blood Count 8.04 K/ul (4.8-10.8)
[2024-01-24 07:52] LABS: BUN Creatinine Ratio 13.3 (10-20); Calcium 8.8 mg/dl (8.6-10.3); Creatinine Clr Calc Pharmacy 154.4 ml/min; Est GFR (African American) 126.6 ml/min; Est GFR (Non-African American) 109.2 ml/min; Potassium 3.6 mmol/L (3.5-5.1)
--- NOTE | 2024-01-24 08:37 | History & Physical Bridge Note ---
Date of Service January 24, 2024 History & Physical Bridge Note I have examined the patient, reviewed the History & Physical and in the interval since the performance of the History & Physical I have noted the following changes of clinical significance: no changes noted. OK for the planned I&D with ? stone removal and extraction of abscessed lower right roots.
[2024-01-24] MEDS ORDERED: PROMETHAZINE HCL 6.25 MG in SODIUM CHLORIDE 0.9% 50 ML IV PRN (08:52)
[2024-01-24] MEDS ORDERED: ATROPINE SULFATE 0.1 MG/ML 10ML SYR IV PRN (08:52)
[2024-01-24] MEDS ORDERED: ePHEDrine sulfate 50 MG/ML AMP IV PRN (08:52)
[2024-01-24] MEDS ORDERED: ONDANSETRON INJ 2 MG/ML 2 ML VIAL IV PRN (08:52)
--- NOTE | 2024-01-24 08:52 | Anesthesiology Consultation ---
Date of Service January 24, 2024 Assessment & Plan Chart Review Chart Review: Acceptable Risk for Surgery and Patient NOT seen in Pre Admission Testing Consults Requested none ASA ASA2 Proposed Anesthesia Anesthesia Type: General (nasal intubation requested by surgeon) Risk / Benefits Reviewed With: PT / POA / Parent / Guardian, Accepts Plan and Informed Consent Obtained History Surgery Operation Date: 01/24/24 09:30 Proposed Procedures p M. Facial Incision and Drainage, removal of teeth - Tawanda Eisenberg, DMD Height/Weight Height: 5 ft 11 in Weight: 111.2 kg Allergies Allergy/AdvReac Type Severity Reaction Status Date / Time No Known Allergies Allergy Unverified 01/21/24 14:04 Medications Home Medications Medication Instructions Recorded Confirmed Last Taken No Known Home Medications 01/21/24 01/21/24 Unknown Active Medications Generic Name Dose Route Start Last Admin Trade Name Freq PRN Reason Stop Dose Admin Chlorhexidine Gluconate 15 ml 01/23/24 16:37 01/24/24 01:36 Chlorhexidine Gluconate 0.12% 480 Ml MT 02/22/24 16:36 15 ml Q6 PRN Administration 15 ml q 6 hrs and in AM preop Hydromorphone HCl 0.5 mg 01/23/24 08:16 01/24/24 01:01 Hydromorphone Inj 0.5 Mg/0.5 Ml Syr IV 02/06/24 08:15 0.5 mg Q4H PRN Administration Severe Pain (Scale 7, 8, 9,10) Acetaminophen 1,000 mg in 100 mls @ 400 mls/hr 01/21/24 17:15 01/24/24 08:26 Ofirmev IV 01/24/24 17:14 Not Given Q8H ЕЛЕНА Piperacillin Sod/Tazobactam Sod 4.5 gm in 100 mls @ 25 mls/hr 01/21/24 19:00 01/24/24 08:25 Zosyn IV 01/31/24 18:59 Infused Q8H ЕЛЕНА Infusion Sodium Chloride 1,000 mls @ 125 mls/hr 01/23/24 20:15 01/24/24 08:26 Nss IV 02/22/24 20:14 Infused .Q8H ЕЛЕНА Infusion Ketorolac Tromethamine 30 mg 01/22/24 17:20 01/24/24 04:02 Ketorolac Tromethamine 15 Mg/Ml Vial IV 01/25/24 17:19 30 mg Q6H PRN Administration Mod-Sev Pain (Scale 4-10) NPO Date Last Intake of Fluids: 01/23/24 Time Last Intake of Fluids: 00:00 Date Last Intake of Solids: 01/23/24 Time Last Intake of Solids: 00:00 Past Medical History Medical History 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 Dyslipidemia Bipolar disorder Exercise / Class Metabolic Activity II 4-5 Yardwork/Stairs/Walk up hill Past Family History Family History Mother Non-Hodgkin lymphoma Father Brain cancer Past Surgical History Surgical History H/O vasectomy Past Anesthesia History No Hx of Anesthesia Complications and No Family Hx of Anesthesia Complications History of PONV No Hx of PONV and No Hx of Motion Sickness Social History Smoking Status: Former smoker Do You Dip or Chew Tobacco: No Hx Alcohol Use: No Hx Substance Use: No Physical Exam Vital Signs Last Vital Signs Temp 36.4 C L 01/24/24 07:42 Pulse 69 01/24/24 07:42 Resp 18 01/24/24 07:42 BP 99/64 L 01/24/24 07:42 Pulse Ox 94 01/24/24 07:42 O2 Del Method Room Air 01/24/24 07:42 ENMT Mouth: + poor dentition Thyromental Distance: > or= 3.5 Finger Breadths Mallampati Class: II Neck normal visual inspection Respiratory normal respiratory effort Auscultation: lungs clear to auscultation bilaterally Cardiovascular Rate/Rhythm: regular rate and regular rhythm Psychiatric Orientation: alert Testing Laboratory Results 01/24/24 07:04 01/24/24 07:04 01/21/24 14:58 Aerobic Blood Culture - Preliminary Blood No growth in Aerobic bottle after 48 hours. Anaerobic Blood Culture - Preliminary No growth in Anaerobic bottle after 48 hours.
[2024-01-24] MEDS ORDERED: PROPOFOL IV EMULSION 10 MG/ML 20 ML VIAL IV ONE (08:58)
[2024-01-24] MEDS ORDERED: fentaNYL citrate PF 100 MCG/2 ML VIAL ONE ×2 (08:58→10:02)
[2024-01-24] MEDS ORDERED: MIDAZOLAM HCL 1 MG/ML 2ML VIAL ONE (08:58)
--- NOTE | 2024-01-24 09:41 | Hospitalist Progress Note ---
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 Notes it has gotten progressively worse and is to the point where it hurts to swallow. He was started on oral Augmentin on 01/18 without much to any improvement. Spoke with OMFS who will evaluate and discuss possible surgical intervention. #Hypotensive, aymptomatic BP lower end of normal, poor po intake Continue IVF #Acute Sialoadenitis soft tissue neck CT w/ the following findings: * Multiple large sialoliths w/in the R submandibular gland and proximal submandibular duct, measuring up to 2.3 x 1.3 cm. * Associated sialoadenitis of the R submandibular gland w/ moderate adjacent inflammation w/ mass effect upon the hypopharynx and floor of the mouth. * Multiple mildly enlarged R-sided cervical lymph nodes - likely reactive. A follow-up neck CT 2 months to ensure resolution and exclude the much less likely possibility of an underlying neoplastic process is recommended. OMFS consulted - -Continue IV zosyn -NPO for surgical intervention Blood culture NGTD Follow up imaging as op for resolution of LAD--likely reactive 2/2 infection Adjusted pain regimen for better coverage of symptoms Follow up post op, plan forI&D with OMFS today 01/23 DVT Prophylaxis: TEDs/SCDs for now pending OMFS evaluation. Code Status: FULL CODE PCP: [facility] Disposition: Admit to Med/Surg + Telemetry Admission and Anticipated Discharge Date Admission Date: January 21, 2024 Subjective NAEO; evaluated prior to surgery this am Reports feeling well this am and ready to have procedure Denies any new symptoms Physical Exam Constitutional: WD/WN, vitals as above Respiratory: normal respiratory effort, lungs clear to auscultation Cardiovascular: RRR, no murmur, no edema Gastrointestinal (Abdomen): normal bowel sounds, soft, nontender, no hepatosplenomegaly Results & Data Results & Data Vital Signs (Past 12 Hours) Vital Signs Temp Pulse Pulse Resp BP Pulse Ox O2 Del Method 09/01/24 07:42 36.4 C L 69 18 99/64 L 94 Room Air 01/24/24 07:05 69 01/24/24 03:13 36.7 C 78 18 97/67 L 94 Room Air 01/23/24 23:42 76 01/23/24 22:49 36.8 C 74 16 109/77 95 Room Air Laboratory Results Short CBC 01/24/24 Range/Units 07:04 WBC 8.04 (4.8-10.8) K/ul Hgb 13.6 L (14.0-18.0) g/dl Hct 40.8 L (42.0-52.0) % Plt Count 258 (130-400) K/uL BMP 01/24/24 07:04 Sodium 139 Potassium 3.6 Chloride 104 Carbon Dioxide 27 BUN 10 Creatinine 0.75 Glucose 103 H Calcium 8.8 Medications Administered Home Medications Medication Instructions Recorded Confirmed Last Taken No Known Home Medications 01/21/24 01/21/24 Unknown Active Medications Generic Name Dose Route Start Last Admin Trade Name Freq PRN Reason Stop Dose Admin Chlorhexidine Gluconate 15 ml 01/23/24 16:37 01/24/24 01:36 Chlorhexidine Gluconate 0.12% 480 Ml MT 02/22/24 16:36 15 ml Q6 PRN Administration 15 ml q 6 hrs and in AM preop Hydromorphone HCl 0.5 mg 01/23/24 08:16 01/24/24 01:01 Hydromorphone Inj 0.5 Mg/0.5 Ml Syr IV 02/06/24 08:15 0.5 mg Q4H PRN Administration Severe Pain (Scale 7, 8, 9,10) Acetaminophen 1,000 mg in 100 mls @ 400 mls/hr 01/21/24 17:15 01/24/24 08:26 Ofirmev IV 01/24/24 17:14 Not Given Q8H ЕЛЕНА Piperacillin Sod/Tazobactam Sod 4.5 gm in 100 mls @ 25 mls/hr 01/21/24 19:00 01/24/24 08:25 Zosyn IV 01/31/24 18:59 Infused Q8H ЕЛЕНА Infusion Sodium Chloride 1,000 mls @ 125 mls/hr 01/23/24 20:15 01/24/24 08:26 Nss IV 02/22/24 20:14 Infused .Q8H ЕЛЕНА Infusion Ketorolac Tromethamine 30 mg 01/22/24 17:20 01/24/24 04:02 Ketorolac Tromethamine 15 Mg/Ml Vial IV 01/25/24 17:19 30 mg Q6H PRN Administration Mod-Sev Pain (Scale 4-10)
[2024-01-24] MEDS ORDERED: DEXAMETHASONE SOD INJ 4 MG/ML VIAL ONE ×2 (10:38→10:48)
[2024-01-24] MEDS ORDERED: ONDANSETRON INJ 2 MG/ML 2 ML VIAL ONE (10:38)
[2024-01-24] MEDS ORDERED: PHENYLEPHRINE HCL 10 MG/ML VIAL ONE (10:38)
[2024-01-24] MEDS ORDERED: SUGAMMADEX SODIUM 200 MG/2 ML VIAL IV ONE (10:53)
[2024-01-24] MEDS: BUPIVACAINE/EPINEPHRINE 0.5% 1:200,000 1.8 ML CARP ONE (10:58)
--- NOTE | 2024-01-24 11:10 | Post Operative Brief Note ---
PG Immediate Post Op with CF Date of Surgery January 24, 2024 Pre & Post Diagnosis Operation Date: 01/24/24 09:30 Pre-Op Diagnosis: Floor of mouth infection and large right Intraoral stone and infected teeth 29,30,31. Post-Op Diagnosis: Floor of mouth infection and large right Intraoral stone and infected teeth 29,30,31. I identified the patient and participated in the time-out.: Yes Procedure Operation Date: 01/24/24 09:30 Actual Procedures p Right side Floor of mouth Incision and Drainage, Removal of large stone ,removal of teeth #29, 30, 31. - Tawanda Eisenberg, AKHIL Surgeon Tawanda Eisenberg, AKHIL [employer]draulic [employer] Servicer none Estimated Blood Loss 10 Findings Consistent with Post-Op Diagnosis Infection right floor of mouth, erosion of large stone right posterior floor of mouth, infected teeth Specimens Specimen Description: Culture set #1 Submandibular infection. Aero/Danisha Culture & Gram Stain Routine. A. Right Submandibular stone. Complications none Disposition Accompanied Patient To Recovery: Yes
[2024-01-24] MEDS: fentaNYL citrate PF 100 MCG/2 ML VIAL IV PRN (11:14)
--- NOTE | 2024-01-24 11:22 | Anesthesiology Progress Note ---
Date of Service January 24, 2024 Anesthesia Post Procedure Vital Signs Vital Signs: Temp Pulse Pulse Resp BP Pulse Ox O2 Del Method 01/24/24 07:42 36.4 C L 69 18 99/64 L 94 Room Air 01/24/24 07:05 69 01/24/24 03:13 36.7 C 78 18 97/67 L 94 Room Air 01/23/24 23:42 76 01/23/24 22:49 36.8 C 74 16 109/77 95 Room Air 01/23/24 19:46 36.4 C L 92 H 18 126/78 94 Room Air 01/23/24 15:10 36.5 C 66 18 101/63 96 Room Air 01/23/24 13:34 71 01/23/24 11:24 36.6 C 81 16 99/66 L 96 Room Air Pain Intensity Right Jaw: Pain Intensity: 8 Transfer of Care Handoff Completed per policy Notes Mental Status: alert / awake / arousable Patient Amnestic to Procedure: Yes Nausea / Vomiting: adequately controlled Pain: adequately controlled Airway Patency, RR, SpO2: stable & adequate BP & HR: stable & adequate Hydration State: stable & adequate Anesthetic Complications: no major complications apparent
[2024-01-24] MEDS: OXYMETAZOLINE 0.05% 30 ML BTL ONE (12:08)
--- NOTE | 2024-01-24 19:40 | Oral/Maxillofacial Progress Nt ---
Date of Service January 24, 2024 Assessment & Plan Admission and Anticipated Discharge Date Admission Date: January 21, 2024 Subjective 7:30 pm 10 hours post op doing well, no bleeding, less submandibular swelling and much less pain minimal swelling noted less paraesthesia from the tongue taking fluids well I will see in AM and plan for possible discharge. Results & Data Vital Signs (Past 12 Hours) Vital Signs Temp Pulse Pulse Pulse Resp BP Pulse Ox 01/24/24 16:58 36.4 C L 82 19 100/66 93 01/24/24 15:56 87 01/24/24 11:45 36.9 C 73 12 113/80 94 01/24/24 11:35 80 23 120/81 93 01/24/24 11:25 72 13 125/82 98 01/24/24 11:15 79 15 118/82 99 01/24/24 11:07 36.4 C L 87 16 121/78 97 01/24/24 07:42 36.4 C L 69 18 99/64 L 94 O2 Del Method O2 Flow Rate 01/24/24 16:58 Room Air 01/24/24 15:56 01/24/24 11:45 Nasal Cannula 2 01/24/24 11:35 Room Air 01/24/24 11:25 Oxymask 2 01/24/24 11:15 Oxymask 4 01/24/24 11:07 Oxymask 6 01/24/24 07:42 Room Air PG Care Time/CCT Total # of Minutes Spent Total Time Spent with Patient: Total time spent is greater than 50% in coordination of care (as documented) at patient's floor/unit and/or counseling patient: Coding Level of Care Code None
[2024-01-24] MEDS: POLYETHYLENE (MIRALAX) 17 GM PACK PO PRN (20:59)
[2024-01-25 06:39] LABS: Hematocrit (blood only) 35.9 % (42.0-52.0); Hemoglobin 12.7 g/dl (14.0-18.0); Mean Corpuscular Hemoglobin 28.5 pg (25.0-34.0); Mean Corpuscular Hgb Conc 35.4 g/dL (32.0-36.0); Mean Corpuscular Volume 80.7 fL (80.0-100.0); Mean Platelet Volume 9.3 fL (9.4-12.4); Platelet Count 254 K/uL (130-400); RDW Coefficient of Variation 12.9 % (11.5-14.5); RDW Standard Deviation 37.9 fL (36.4-46.3); Red Blood Count 4.45 M/uL (4.70-6.10); White Blood Count 9.72 K/ul (4.8-10.8)
[2024-01-25 07:01] LABS: BUN Creatinine Ratio 13.8 (10-20); Calcium 8.1 mg/dl (8.6-10.3); Creatinine Clr Calc Pharmacy 178.5 ml/min; Est GFR (African American) 134.3 ml/min; Est GFR (Non-African American) 115.9 ml/min; Potassium 3.7 mmol/L (3.5-5.1)
--- NOTE | 2024-01-25 10:16 | Hospitalist Progress Note ---
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 Notes it has gotten progressively worse and is to the point where it hurts to swallow. He was started on oral Augmentin on 01/18 without much to any improvement. OMFS is consulted and patient is now s/p right intraoral stone removal and teeth extraction as of 01/23. Patient doing well postoperatively. Likely dispo tomorrow given holiday staffing at institution. Patient transitioned to PO abx. #Hypotensive, aymptomatic BP lower end of normal, poor po intake discontinue encourage PO intake #Acute Sialoadenitis soft tissue neck CT w/ the following findings: * Multiple large sialoliths w/in the R submandibular gland and proximal s ubmandibular duct, measuring up to 2.3 x 1.3 cm. * Associated sialoadenitis of the R submandibular gland w/ moderate adjacent inflammation w/ mass effect upon the hypopharynx and floor of the mouth. * Multiple mildly enlarged R-sided cervical lymph nodes - likely reactive. A follow-up neck CT 2 months to ensure resolution and exclude the much less likely possibility of an underlying neoplastic process is recommended. OMFS consulted - -transitioned from zosyn to augmentin, plan 5-7 days post op Blood culture NGTD Follow up imaging as op for resolution of LAD--likely reactive 2/2 infection Adjusted pain regimen for better coverage of symptoms Follow up post op, s/p removal of right stone and infected teeth 29.30.21 Doing well post op, likely cleared by OMFS today, will dispo in am given holiday and [facility]ing [facility] #Acute anemia, blood loss Hgb likely down 2/2 procedural losses as well as dilutional from IVF will add anemia labs in am for optimization prior to dispo DVT Prophylaxis: TEDs/SCDs for now pending OMFS evaluation. Code Status: FULL CODE PCP: [facility] Disposition: Admit to Med/Surg + Telemetry Admission and Anticipated Discharge Date Admission Date: January 21, 2024 Subjective NAEO Reports pain intermittently and some blood clots but otherwise much improved from day prior Physical Exam Constitutional: WD/WN, vitals as above Respiratory: normal respiratory effort, lungs clear to auscultation Cardiovascular: RRR, no murmur, no edema Gastrointestinal (Abdomen): normal bowel sounds, soft, nontender, no hepatosplenomegaly Results & Data Results & Data Vital Signs (Past 12 Hours) Vital Signs Temp Pulse Pulse Resp BP Pulse Ox O2 Del Method 01/25/24 07:58 36.7 C 69 20 112/71 95 Room Air 01/25/24 07:43 58 L 01/25/24 04:00 36.5 C 80 18 113/67 93 Room Air 01/24/24 23:03 37.0 C 83 18 106/67 93 Room Air Laboratory Results Short CBC 01/25/24 Range/Units 05:46 WBC 9.72 (4.8-10.8) K/ul Hgb 12.7 L (14.0-18.0) g/dl Hct 35.9 L (42.0-52.0) % Plt Count 254 (130-400) K/uL BMP 01/25/24 05:46 Sodium 140 Potassium 3.7 Chloride 109 H Carbon Dioxide 24 BUN 9 Creatinine 0.65 Glucose 121 H Calcium 8.1 L Medications Administered Home Medications Medication Instructions Recorded Confirmed Last Taken No Known Home Medications 01/21/24 01/21/24 Unknown Active Medications Generic Name Dose Route Start Last Admin Trade Name Freq PRN Reason Stop Dose Admin Chlorhexidine Gluconate 15 ml 01/23/24 16:37 01/24/24 17:51 Chlorhexidine Gluconate 0.12% 480 Ml MT 02/22/24 16:36 15 ml Q6 PRN Administration 15 ml q 6 hrs and in AM preop Hydromorphone HCl 0.5 mg 01/23/24 08:16 01/25/24 08:24 Hydromorphone Inj 0.5 Mg/0.5 Ml Syr IV 02/06/24 08:15 0.5 mg Q4H PRN Administration Severe Pain (Scale 7, 8, 9,10) Piperacillin Sod/Tazobactam Sod 4.5 gm in 100 mls @ 25 mls/hr 01/21/24 19:00 01/25/24 07:27 Zosyn IV 01/31/24 18:59 Infused Q8H ЕЛЕНА Infusion Sodium Chloride 1,000 mls @ 125 mls/hr 01/23/24 20:15 01/25/24 03:09 Nss IV 02/22/24 20:14 125 mls/hr .Q8H ЕЛЕНА Administration Ketorolac Tromethamine 30 mg 01/22/24 17:20 01/25/24 10:05 Ketorolac Tromethamine 15 Mg/Ml Vial IV 01/25/24 17:19 30 mg Q6H PRN Administration Mod-Sev Pain (Scale 4-10) Polyethylene Glycol 17 gm 01/21/24 17:01 01/24/24 20:59 Polyethylene (Miralax) 17 Gm Pack PO 02/20/24 17:00 17 gm DAILY PRN Administration Constipation
[2024-01-25 11:28] LABS: Ferritin 234.9 ng/ml (8-388)
[2024-01-25 11:33] VITALS: BP 103/66; PULSE 55; RESP 16; TEMP 97.7; O2SAT 98
[2024-01-25 11:39] LABS: Folate (Folic Acid),Ser orPlas 11.39 ng/ml (>5.38)
--- NOTE | 2024-01-25 11:56 | Oral/Maxillofacial Progress Nt ---
Date of Service January 25, 2024 Assessment & Plan Admission and Anticipated Discharge Date Admission Date: January 21, 2024 Subjective POST OP NOTE at 24 hours The patient did very well post operatively, Oral care is good, minimal swelling as expected. Tissue tone =healthy normal tissue Minimal swelling right floor of the mouth No nerve complications noted, good tongue function and speech Excellent ROM I called the [facility] facility and discussed transfer with the nursing staff They will continue Augmentin 875 x 10 day, Peridex q 6hrs for 1 week, Tylenol # 3 or Tylenol/Motrin for pain Reviewed oral car Reviewed diet, massage, exercise and continued home/oral care Peridex q 6 hrs RTC to see Dr Eisenberg 10-14 days Overall: Excellent healing from recent oral surgery OK for discharge Results & Data Vital Signs (Past 12 Hours) Vital Signs Temp Pulse Pulse Resp BP Pulse Ox O2 Del Method 01/25/24 11:32 36.5 C 55 L 16 103/66 98 Room Air 01/25/24 07:58 36.7 C 69 20 112/71 95 Room Air 01/25/24 07:43 58 L 01/25/24 04:00 36.5 C 80 18 113/67 93 Room Air PG Care Time/CCT Total # of Minutes Spent Total Time Spent with Patient: Total time spent is greater than 50% in coordination of care (as documented) at patient's floor/unit and/or counseling patient: Coding Level of Care Code None
--- NOTE | 2024-01-25 12:10 | Discharge Summary ---
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 Notes it has gotten progressively worse and is to the point where it hurts to swallow. He was started on oral Augmentin on 01/18 without much to any improvement. OMFS is consulted and patient is now s/p right intraoral stone removal and teeth extraction as of 01/23. Patient doing well postoperatively. Likely dispo tomorrow given holiday staffing at institution. Patient transitioned to PO abx. Plan to continue augmentin for 10 days, peridex every 6 hours, and pain management with tylenol/motrin. Follow up with Dr. Eisenberg in 10-14days. Dr. Eisenberg updated care plan with [facility]. #Hypotensive, aymptomatic BP lower end of normal, poor po intake discontinue encourage PO intake #Acute Sialoadenitis soft tissue neck CT w/ the following findings: * Multiple large sialoliths w/in the R submandibular gland and proximal submandibular duct, measuring up to 2.3 x 1.3 cm. * Associated sialoadenitis of the R submandibular gland w/ moderate adjacent inflammation w/ mass effect upon the hypopharynx and floor of the mouth. * Multiple mildly enlarged R-sided cervical lymph nodes - likely reactive. A follow-up neck CT 2 months to ensure resolution and exclude the much less likely possibility of an underlying neoplastic process is recommended. OMFS consulted - -transitioned from zosyn to augmentin, plan 10days Blood culture NGTD Follow up imaging as op for resolution of LAD--likely reactive 2/2 infection Adjusted pain regimen for better coverage of symptoms Follow up post op, s/p removal of right stone and infected teeth 29.30.21 Doing well post op, likely cleared by OMFS today, will dispo in am given holiday and staffing at [facility] #Acute anemia, blood loss Hgb likely down 2/2 procedural losses as well as dilutional from IVF anemia labs stable Notes For Next Care Provider Medication Changes From Visit Augmentin BID 10 days Peridex [id number] Admission HPI Per Admitting Provider Lyle Vela is a 48y/o M with PMHx significant for dyslipidemia, 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 History obtained from patient, documentation provided by [facility] and associated chart review. Patient with R-sided facial and neck swelling since December 29. Notes it has gotten progressively worse and is to the point where it hurts to swallow. He has been able to tolerate fluids fine, but reports significant difficulty with swallowing solid foods. Denies any SOB or trouble breathing. Has some associated nausea, but no episodes of vomiting. He was started on oral Augmentin on 01/18 at [facility] and has been compliant with this medication. He does not take any other prescribed medications. No fevers, chills or body aches. He has not been eating well over the past 2 days 2/2 pain with swallowing. Reports his mother was diagnosed with non-Hodgkin's lymphoma in her 30s. Father from brain cancer, unsure of what type. Admission Exam Per Admitting Provider Vitals signs as noted above General Appearance:Moderately built and nourished, no apparent distress Head: normocephalic, Atraumatic Eyes: normal inspection, EOMI Neck: supple, Trachea midline, + right submandibular region swelling, tenderness Respiratory/Chest: Normal breath sounds, CTA, No accessory muscle use Cardiovascular: S1, S2, No murmur Abdomen/GI:Soft, Non tender, Bowel sounds present Extremities/Musculoskeletal:normal inspection, no edema, +Finger Amputation Neurologic/Psych:AAOX3, grossly no focal neurological deficits Skin: normal color, warm Discharge Exam Constitutional WD/WN, vitals as above Respiratory normal respiratory effort, lungs clear to auscultation Cardiovascular RRR, no murmur, no edema Gastrointestinal (Abdomen) normal bowel sounds, soft, nontender, no hepatosplenomegaly Updated Medication List Medication Instructions Recorded Confirmed Type amoxicillin 875 mg-potassium 1 tab PO BIDM 10 days #20 tabs 01/25/24 Rx clavulanate 125 mg tablet chlorhexidine gluconate 0.12 % 15 ml MT Q6 PRN 10 days #0 mL 01/25/24 Rx mouthwash Hospital Stay Data Consultations 01/21/24 13:33 ED Decision to Admit Stat 01/21/24 13:40 Consult Oromaxillofacial Surgery Routine Procedures Performed Operation Date: 01/24/24 09:30 Actual Procedures p Facial Incision and Drainage, - Tawanda Eisenberg DMD s removal of teeth #29, 30, 31. - Tawanda Eisenberg DMD Diagnostic Imagining Performed 01/21/24 11:01 CT soft tissue neck w con Stat Discharge Instructions Given to Patient (Per Discharging Provider) ADDITIONAL ACTIVITY RECOMMENDATIONS: Tylenol # 3 1 q 4-6 hours as needed to pain may transition yo Tylenol/Motrin as tolerated Augmentin 875 1 q 12 hr x 10 days Peridex rinse 1 6 hrs x 1 week * [place] teeth after every meal. It is very important to keep your mouth clean to prevent infection. *Peridex rinse 3 x a day every 6 hours for next 5-7 days * it is very important to keep well hydrated, this prevents fever and possible dry socket pain SPECIAL CARE INSTRUCTIONS: *It is not uncommon that between day 2-4 that your swelling will be at its worst this is very normal, do not be alarmed. * Some swelling is common. It should gradually decrease within 4-5 days. * Return to the office for a follow up check up on: we will call to arrange * office address--[id number] phone # [phone] Total Time Total Time Spent Total Time Spent (In Minutes): 35
[2024-01-25] MEDS ORDERED: AMOXICILLIN/CLAVULANATE 875 MG TAB PO SCH (17:00)
--- NOTE | 2024-02-01 08:33 | Operative Report ---
PG Post Operative Report Pre & Post Diagnosis Operation Date: 01/24/24 09:30 Pre-Op Diagnosis: Intraoral stone and infected teeth 29,30,31. Post-Op Diagnosis: Intraoral stone and infected teeth 29,30,31. I identified the patient and participated in the time-out.: Yes Procedure Operation Date: 01/24/24 09:30 Actual Procedures p Facial Incision and Drainage, - Tawanda Eisenberg DMD s removal of teeth #29, 30, 31. - Tawanda Eisenberg DMD Surgeon Tawanda Eisenberg DMD Ophthalmic Technician none Estimated Blood Loss 10 Findings Consistent with Post-Op Diagnosis Specimens large stone from the right submandibular duct sialolithiasis of large stone Drains none Anesthesia Type General Complications none Disposition Accompanied Patient To Recovery: Yes Indications intraoral exposure of large salivary stone posterior submandibular duct with associated infection Description of Procedure Actual Procedures p Incision and Drainage Submandibular Abscess; Sialolithiasis of large stone Intraoral removal of very large submandibular stone right floor of the mouth and Removal of Tooth #29,30,31 (Not Applicable) - Tawanda Eisenberg DMD ICD 10 K11.5 R22.1 K12.2 CPT codes CPT 30627-80 (very difficult, large stone ) CPT 43963 D7140 x 3 (29,30,31) Once cleared for surgery general anesthesia was achieved, the eyes were protected by the anesthesia dept criteria. A time out was take for patient ID, antibiotics, equipment and position verification once all agreed the procedure began. Local anesthesia using Marcaine with a vasoconstrictor ( 1.8 ml per site) given into right inferior alveolar nerve A throat pack was placed after the oral cavity was irrigated with saline. Once a surgical level of anesthesia was obtained and the local anesthesia was given time for the blocks the surgery was started. I turned my attention to the infection which was located in the floor of the mouth and submental/submandibular right area. The tongue was elevated and there was also swelling associated with tooth # 29,30,31 ( see CT scan report) Incision and Drainage ,Intraoral removal of salivary stone right duct ( Sialolithiasis large stone) CPT 75093-91 (very difficult, large stone ) A series of small to large lacrimal probes were used to enter the duct of the right submandibular gland. Upon entering the duct put extruded and was drained from the infected duct. Once the swelling was drained I was able to now note that the 2 cm stone the post posterior duct was exposed in the floor of the mouth. With great care I was able to advance the probe into the duct until the large stone was encountered. Now with the prob in place I used a 15 blade and made an incision medial to the alveolar ridge over the duct of the submandibular gland to fillet the duct open from the entrance to the stone. Great care and careful discission was used to avoid the lingula nerve, artery and other vital structures such as the hypoglossal nerve.Due to the chronic swelling the tissue was very dense and there was very little bleeding encountered. Once the incision was made a lot of pus extruded from the site. This drainage was cultured for anaerobic and aerobic bacteria. A curved hemostat was carefully used to dissect about the large irregular stone, this allowed the stone to be removed from the deep tissues. Some further drainage was now allowed to escape. The gland was palpated and was much less firm now that the stone was removed. Future gland removal will need to be evaluated once the floor of the mouth infection is resolved. I palpated the chin and submental area and no further drainage was expressed. The area was irrigated with at least 100 ml of NS solution. Closure of the floor of the mouth was accomplished with a 4-0 Vicryl. Once the stone was removed there was no intact duct as it was scared to the adjacent tissues. Given the CT findings the right submandibular gland is non functioning and totally calcified. Duct reconstruction was not possible of indicated. I now turned my attention to remove the 3 teeth Lower # 29,30,31 The full thick Muco-periosteal flap was made on the facial aspect from # 26-30. The flap was reflected to expose the the subperiosteal space the bone adjacent to # 28. The rongeur was used to remove bone, the teeth were removed with a 301 elevator, the mental nerve was intact, there was a large amount of granulation tissue on the apex and some more pus that was expressed. Post op I inspected the sites to insure all bleeding was controlled. I removed the throat pack and suctioned the throat. A gauze pressure dressings was placed. All instrument and sponge count was correct. The patient was allowed to awake from the anesthesia. Once full awake the anesthesia tube was removed and the patient was taken to the recovery room with all vital sign stable. The patient tolerated the surgery very well. I will follow the patient in my office, Rx and instructions will be given upon discharge. I attest to the content of the Intraoperative Record and any orders documented therein. Any exceptions are noted below.
== END 2024-01-25 14:06 | disposition home or self-care (01) | DRG 139 ==
LOC: ED 10:22 → 2W 13:40 → SUATTDRO 13:40 → 2W 16:12